=== PATIENT | female | born 1990 | race Caucasian/White ===

== ENCOUNTER 2017-12-27 09:52 | Observation (INO) | payer MEDICAID ==
[2017-12-27] MEDS ORDERED: PREN-153 OR (11:05)
== END 2017-12-27 11:25 | disposition home or self-care (01) | DRG 560 ==
LOC: LDRP 09:52
PROVIDERS: ADMIT Obstetrics & Gynecology; ATTEND Obstetrics & Gynecology
DX: O26.893 Other specified pregnancy related conditions, third trimester (principal); Z37.1 Single stillbirth; O09.293 Supervision of pregnancy with other poor reproductive or obstetric history, third trimester; R10.30 Lower abdominal pain, unspecified; Z3A.33 33 weeks gestation of pregnancy
CPT/HCPCS: 59025; 76818; 81002; G0378

== ENCOUNTER 2018-01-04 10:00 | Observation (INO) | payer MEDICAID ==
[~2018-01-04 10:00] MED LIST: PREN-153 OR
[2018-01-04] MEDS ORDERED: BETAMETHASONE ACET (6MG/ML) 5ML VIAL IM ONE (11:00)
== END 2018-01-04 12:00 | disposition home or self-care (01) | DRG 563 ==
LOC: LDRP 10:00
PROVIDERS: ADMIT Specialist; ATTEND Specialist
DX: O60.00 Preterm labor without delivery, unspecified trimester (principal); Z3A.00 Weeks of gestation of pregnancy not specified
CPT/HCPCS: 59025; 76818; 81002; 96372; G0378; J0702

== ENCOUNTER 2018-01-05 11:25 | Observation (INO) | payer MEDICAID ==
[2018-01-05] MEDS ORDERED: BETAMETHASONE ACET (6MG/ML) 5ML VIAL IM ONE (12:00)
== END 2018-01-05 12:15 | disposition home or self-care (01) | DRG 563 ==
LOC: LDRP 11:25
PROVIDERS: ADMIT Obstetrics & Gynecology; ATTEND Obstetrics & Gynecology
DX: O60.03 Preterm labor without delivery, third trimester (principal); Z3A.34 34 weeks gestation of pregnancy
CPT/HCPCS: 59025; 81002; 96372; G0378